=== PATIENT | female | born 1990 | race Two or more races ===

== ENCOUNTER 2020-06-18 20:26 | Emergency (ER) | payer BC ==
[~2020-06-18] VITALS: Ht 157.5 cm; Wt 77.1 kg
[2020-06-18 20:31] VITALS: BP 115/83
== END 2020-06-19 02:09 | disposition left against medical advice (07) ==
LOC: ER 20:33
DX: S50.812A Abrasion of left forearm, initial encounter (principal); S30.811A Abrasion of abdominal wall, initial encounter; M54.6 Pain in thoracic spine; R07.89 Other chest pain; V49.49XA Driver injured in collision with other motor vehicles in traffic accident, initial encounter; Y93.89 Activity, other specified; Y92.488 Other paved roadways as the place of occurrence of the external cause; Y99.8 Other external cause status
CPT/HCPCS: 71045; 72070